=== PATIENT | female | born 1990 | race Caucasian/White ===

== ENCOUNTER → 2022-06-23 | Outpatient (CLI) | payer MEDICAID, SELFPAY ==
--- NOTE | 2022-06-23 16:40 | NEURO_ITS ---
NCS and/or EMG Patient Report Ordering Doctor: Andres Kim DATE OF SERVICE: 06/23/22 Indication: Bilateral hand pain, numbness and tingling (left slightly worse than left). Occasional radiation up the forearms. No axial or radicular neck pain. Evaluate for nerve entrapment. Findings: Nerve conduction studies were performed in the right and left upper extremities. The right median motor study recording the abductor pollicis brevis showed a normal amplitude, prolonged distal latency and normal conduction velocity. The right ulnar motor study recording the abductor digiti minimi showed a normal amplitude, normal distal latency and normal conduction velocity. No conduction block or focal slowing was present across the elbow. The right median sensory response recording digit two showed a slightly reduced amplitude, prolonged latency and slowed conduction velocity. The right ulnar sensory response recording digit five showed a normal amplitude, latency and conduction velocity. The right radial sensory response recording over the extensor snuff box showed a normal amplitude, latency and conduction velocity. The left median motor study recording the abductor pollicis brevis showed a normal amplitude, prolonged distal latency and normal conduction velocity. The left ulnar motor study recording the abductor digiti minimi showed a normal amplitude, normal distal latency and normal conduction velocity. No conduction block or focal slowing was present across the elbow. The left median sensory response recording digit two showed a slightly reduced amplitude, prolonged latency and slowed conduction velocity. The left ulnar sensory response recording digit five showed a normal amplitude, latency and conduction velocity. The left radial sensory response recording over the extensor snuff box showed a normal amplitude, latency and conduction velocity. Left median-ulnar lumbrical / interosseous motor latencies showed a prolonged median latency compared to the ulnar. Needle EMG of the upper extremities was omitted given the confirmatory nature of the nerve conductions and lack of radicular symptoms. Impression: This is an abnormal study. There no electrophysiologic evidence of median neuropathy across the wrist on both sides (moderate on the right, moderate on the left). These findings are consistent with the clinical diagnosis of carpal tunnel syndrome. Dylan Paniagua D.O. [employer] Codes Neurology Neurology Interp Codes: 51051-72 [facility] test 11-12 studies (interp)
== END | disposition home or self-care (01) ==
LOC: PSN 15:26
DX: M79.641 Pain in right hand (principal); M79.642 Pain in left hand; R29.898 Other symptoms and signs involving the musculoskeletal system
CPT/HCPCS: 95912